=== PATIENT | female | born 1965 | race Caucasian/White ===

== ENCOUNTER → 2017-02-15 | Outpatient (CLI) | payer BC ==
--- NOTE | ~2017-02-15 | MY29 ---
[facility] A Service of [facility] RADIOLOGY TEXT RESULTS PATIENT: PATIENCE MENDOZA LOCATION: [facility] : 63 UNIT #: [id number] AGE: [address]: Lalo Cho MD SEX: F ORDER DR: [id number] [facility] [address] [place] [address] [place], [place] [address] [id number] O MR#: [id number] Acc #: [id number] NAME: PATIENCE MENDOZA : 1965 SEX: F STUDY DATE/TIME: 02/15/2017 9:33 UNIT: [facility] ROOM: STUDY DESCRIPTION: MY [facility] SCREENING W/ CAD BILAT Attending Physician: Lalo Cho M.D. Referring Physician: Ashish Mukherjee M.D. Ordering Physician: Lalo Cho M.D. Primary Care Physician: Patsy Barbosa M.D. MEDICAL IMAGING REPORT This report is preliminary unless electronic signature is present EXAM Digital screening mammogram 02/15/2017 HISTORY 51-year-old woman. No risk elevation. Annual screen. COMPARISON Mammograms date to 11/19/2009 with most recent 02/12/2016. FINDINGS Digital imaging of each breast was completed utilizing screening protocol. Review includes FDA-approved CAD device. Breast parenchyma remains extremely dense with homogeneous fibroglandular presentation. This reflects both fibroglandular parenchyma and generalized bilateral parenchymal nodularity. Faint tightly grouped microcalcifications left subareolar region are stable. Occasional faint punctate calcifications noted in each breast. I see no suspicious mass characteristics. There are no interval occurring suspicious microcalcifications and no architectural deformity. IMPRESSION Benign mammogram. Stable dense breast parenchyma. Annual screening recommended. Patient's over the age of 40 are entered into a reminder system with target due date for the next mammogram. BIRADS: 2 Benign findings Dictated by... Bari Patel M.D. [facility] A Service [facility] RADIOLOGY TEXT RESULTS PATIENT: PATIENCE MENDOZA LOCATION: [facility] : 63 UNIT #: [id number] AGE: [address]: Lalo Cho MD SEX: F ORDER DR: THIS IS AN ELECTRONICALLY VERIFIED REPORT Bari Patel M.D. at 02/15/2017 1:08 PM Danica TD: 02/15/2017 12:45 JOB #: [id number] MEDICAL IMAGING REPORT Page 1 of 1 COPY
== END | disposition home or self-care (01) ==
LOC: CWCC 02-10 11:30
DX: Z12.31 Encounter for screening mammogram for malignant neoplasm of breast (principal)
CPT/HCPCS: G0202